=== PATIENT | female | born 1950 | race Caucasian/White ===

== ENCOUNTER 2024-02-09 10:21 | Day surgery (SDC) | payer MEDICARE, SELFPAY ==
[2024-02-05 14:48] VITALS: BMI 24.4
[2024-02-09 11:22] VITALS: BMI 23.9
[2024-02-09 11:30] VITALS: BP 127/51; PULSE 68; RESP 16; TEMP 36.4; O2SAT 100
--- NOTE | 2024-02-09 11:30 | HO.ANESPROP2 ---
Documented by User: Lolis Black NP 02/06/24 09:30 HPI - Anesthesia Eval Consult details Narrative: 73yo F for Colonoscopy PMFSH Past Medical History Medical History (Updated 02/05/24 @ 14:50 by Terese Black RN) Uterine prolapse Female bladder prolapse Hypothyroid Surgical History Surgical History (Updated 02/05/24 @ 14:51 by Terese Black RN) Hx of excision of mass History of open reduction and internal fixation (ORIF) procedure Hx of appendectomy H/O colonoscopy Social History Social History (Updated 02/05/24 @ 14:51 by Terese Black RN) Patient Tobacco Use Status: Never used Tobacco Use of substances other than those prescribed or required for medical reasons: No Are you DNR?: Yes Advance Directives: No Advance Directives Information Provided: Yes Meds Allergies Allergy/AdvReac Type Severity Reaction Status Date / Time silver sulfadiazine Allergy Intermediate SWELLING Verified 02/09/24 11:21 [From SILVADENE] ampicillin [AMPICILLIN] AdvReac Mild RASH Verified 02/09/24 11:21 Home Medications ?Medication ?Instructions ?Recorded ?Confirmed ?Last Taken ?Type alendronate 70 mg tablet 70 mg PO QWEEK 02/05/24 02/05/24 Unknown History calcium carbonate 600 mg-vitamin 1 tab PO DAILY 02/05/24 02/05/24 Unknown History D3 5 mcg (200 unit) tablet cholecalciferol (vitamin D3) 10 10 mcg PO DAILY 02/05/24 02/05/24 Unknown History mcg (400 unit) capsule (Vitamin D3) lactobacillus comb no.10 20 20,000 mmu cells PO DAILY 02/05/24 02/05/24 Unknown History billion cell capsule (Probiotic) levothyroxine 100 mcg tablet 100 mcg PO DAILY 02/05/24 02/05/24 Unknown History multivitamin 1 tab PO QAM 02/05/24 02/05/24 Unknown History Exam Height,Weight and Vital Signs: Height 5 ft 3.75 in Weight 63.957 kg Assessment and Plan Assessment Anesthesia Assessment: Chart Reviewed Documented by User: Tami Almanza DO 02/09/24 11:44 PMFSH Past Medical History Medical History (Updated 02/05/24 @ 14:50 by Terese Black RN) Uterine prolapse Female bladder prolapse Hypothyroid Family History Family history of problems with anesthesia: No Surgical History Surgical History (Updated 02/05/24 @ 14:51 by Terese Black RN) Hx of excision of mass History of open reduction and internal fixation (ORIF) procedure Hx of appendectomy H/O colonoscopy History of Problems with Anesthesia: No Social History Social History (Updated 02/05/24 @ 14:51 by Terese Black RN) Patient Tobacco Use Status: Never used Tobacco Use of substances other than those prescribed or required for medical reasons: No Are you DNR?: Yes Advance Directives: No Advance Directives Information Provided: Yes Meds Allergies Allergy/AdvReac Type Severity Reaction Status Date / Time silver sulfadiazine Allergy Intermediate SWELLING Verified 02/09/24 11:21 [From SILVADENE] ampicillin [AMPICILLIN] AdvReac Mild RASH Verified 02/09/24 11:21 Home Medications ?Medication ?Instructions ?Recorded ?Confirmed ?Last Taken ?Type alendronate 70 mg tablet 70 mg PO QWEEK 02/05/24 02/05/24 Unknown History calcium carbonate 600 mg-vitamin 1 tab PO DAILY 02/05/24 02/05/24 Unknown History D3 5 mcg (200 unit) tablet cholecalciferol (vitamin D3) 10 10 mcg PO DAILY 02/05/24 02/05/24 Unknown History mcg (400 unit) capsule (Vitamin D3) lactobacillus comb no.10 20 20,000 mmu cells PO DAILY 02/05/24 02/05/24 Unknown History billion cell capsule (Probiotic) levothyroxine 100 mcg tablet 100 mcg PO DAILY 02/05/24 02/05/24 Unknown History multivitamin 1 tab PO QAM 02/05/24 02/05/24 Unknown History Exam Exam Date and Time: 02/09/24 1130 Height,Weight and Vital Signs: Height 5 ft 3.75 in Weight 63.957 kg Vital Signs Temperature 97.5 F 02/09/24 11:30 Pulse Rate 68 02/09/24 11:30 Respiratory Rate 16 02/09/24 11:30 Blood Pressure 127/51 L 10/21/24 11:30 Pulse Oximetry 100 02/09/24 11:30 Oxygen Delivery Method Room Air 02/09/24 11:30 Temperature 97.5 F 02/09/24 11:30 Pulse Rate 68 02/09/24 11:30 Respiratory Rate 16 02/09/24 11:30 Blood Pressure 127/51 L 02/09/24 11:30 Pulse Oximetry 100 02/09/24 11:30 Oxygen Delivery Method Room Air 02/09/24 11:30 Airway Mallampati Class: I TM Dist: >3cm Neck ROM: Full Loose/Missing/Broken Teeth: No (patient denies any loose or broken teeth) Heart: S1S2 Lungs: CTAB Assessment and Plan Assessment Anesthesia Assessment: Anesthesia Plan Discussed and Chart Reviewed Final Anesthetic Review Family History of Problems with Anesthesia: No History of Problems with Anesthesia: No NPO: Yes ASA Class: II Final Preanesthetic Review: No Changes in Pt Med Stat, Meds/Allgs Chart Reviewed, Consent Obtained/Reviewed, Anes Risks/Benef Reviewed and DNR Form (If Appl.) (DNR/DNI suspended during perioperative period) Patient Risk: Low Procedure Risk: Low Anesthetic Plan Anesthetic Plan: MAC: and Agree w/ Assess. and Plan Disposition: Standard PACU
[2024-02-09 12:32] VITALS: BP 104/65; PULSE 74; RESP 16; TEMP 36.1; O2SAT 99
--- NOTE | 2024-02-09 12:35 | PM.OP ---
Brief Operative Note Date of Service: 02/09/24 Pre-op diagnosis: Screening Post-op diagnosis: other (Diverticulosis) Procedure: Colonoscopy to the cecum and TI Surgeon: Jaxson Beard MD Anesthesia: MAC Was an Supervisor Dials used for this Procedure?: No Estimated blood loss (mL): 0 Pathology: none sent Condition: stable Disposition: PACU
[2024-02-09 12:47] VITALS: BP 104/65; PULSE 62; RESP 16; TEMP 36.1; O2SAT 99
--- NOTE | 2024-02-09 13:18 | OP_ITS ---
DATE OF SERVICE: 02/09/2024 SURGEON: Jaxson Beard MD INDICATIONS: The patient presents for evaluation of colorectal cancer screening. Full consent has been obtained from her for this, including risks of bleeding and perforation. PREOPERATIVE DIAGNOSIS: Colorectal cancer screening. POSTOPERATIVE DIAGNOSIS: PROCEDURE PERFORMED: Colonoscopy to the cecum and terminal ileum. ESTIMATED BLOOD LOSS: COMPLICATIONS: ANESTHESIA: Monitored anesthesia care. ASSISTANTS: SPECIMENS: POSTOPERATIVE DIAGNOSES: Colorectal cancer screening, diverticulosis, and internal hemorrhoids. DESCRIPTION OF PROCEDURE: The patient was placed in the left lateral decubitus position. The digital rectal exam revealed some external hemorrhoids. The Olympus video pediatric colonoscope was entered into the rectum and advanced easily to the cecum. Once in the cecum, I did identify normal-appearing cecal pouch with appendiceal orifice, and a normal-appearing ileocecal valve. The terminal ileum was cannulated and appeared normal. Scope was withdrawn back in the colon. The entire cecum and ileocecal valve appeared normal. The scope was slowly withdrawn assessing all mucosal surfaces carefully. Preparation was excellent. I did not visualize any sign of polyps, colitis, nor angiodysplasia. There was a mild amount of sigmoid diverticulosis. In the rectum, scope was retroflexed visualizing internal hemorrhoids, but no other pathology. The rectal mucosa appeared normal. Scope was straightened and withdrawn from the patient. She tolerated the procedure well and was returned to the recovery area in stable condition. IMPRESSION: 1. Diverticulosis. 2. Internal hemorrhoids. PLAN: Given her age and today's negative exam, I would recommend that she not need any further screening colonoscopies. She was advised to see me again as needed. She was advised to continue her daily MiraLAX and/or Metamucil to help maintain her bowel movement regularity. MD GEREMIAS [employer]/SUNILL / [id number]
== END 2024-02-09 13:23 | disposition home or self-care (01) ==
PROVIDERS: PCP Internal Medicine; Visit Provider Internal Medicine
PROC: 0DJD8ZZ Inspection of Lower Intestinal Tract, Via Natural or Artificial Opening Endoscopic (ICD-10-PCS; CPT 45378; principal; 2024-02-09 11:30)
DX: Z12.11 Encounter for screening for malignant neoplasm of colon (principal); K57.30 Diverticulosis of large intestine without perforation or abscess without bleeding; K64.8 Other hemorrhoids; K59.09 Other constipation; E03.9 Hypothyroidism, unspecified; N81.4 Uterovaginal prolapse, unspecified; Z66 Do not resuscitate; Z79.899 Other long term (current) drug therapy; Z88.1 Allergy status to other antibiotic agents; Z88.8 Allergy status to other drugs, medicaments and biological substances; Z98.890 Other specified postprocedural states
CPT/HCPCS: G0121; J2704